=== PATIENT | male | born 1995 | race Caucasian/White ===

== ENCOUNTER 2021-10-20 12:31 | Emergency (ER) | payer SELFPAY ==
[2021-10-20 12:46] VITALS: BP 124/78; PULSE 62; RESP 16; TEMP 36.6; O2SAT 99
--- NOTE | 2021-10-20 12:58 | ED.BACK ---
HPI - Back Pain/Injury General Chief Complaint: Back Pain/Injury Stated Complaint: Middle to low back paiin Source: patient Mode of arrival: ambulatory Limitations: no limitations History of Present Illness HPI Narrative: this 26-year-old gentleman presents with low back pain right pair of vertebral area with negative straight leg raising test tenderness with movement and with some lifting, the patient states that he works for [employer] and has been lifting heavy boxes and about a week ago after lifting his pain started he rates it about a 7/10 states that he has tried ibuprofen with minimal relief with no saddle paresthesias no bowel or bladder dysfunction no fever chills. MD elicited complaint: back pain Onset (ago): week(s) Timing: constant Severity: moderate Pain scale (0-10): 7 Quality: aching and spasming Location: lumbar spine Radiation: none Exacerbating factors: movement Related Data Allergies Allergy/AdvReac Type Severity Reaction Status Date / Time iohexol Allergy Unknown Verified 10/20/21 12:49 [From contrast - CT, X-RAY] shellfish derived Allergy Anaphylaxis Verified 10/20/21 12:49 Review of Systems Review of Systems: All systems reviewed & are unremarkable except as noted in HPI and below PMFSH Past Medical History Medical History Patient denies medical problems Exam Const: General: healthy appearing and no acute distress HENMT: Head: normal to inspection Eyes: Pupils: Equal, round and reactive pupils present EOM: EOMs intact bilaterally Neck: Neck: normal visual inspection, no lymphadenopathy and no meningeal signs Chest: Chest palpation & inspection: normal inspection of the chest Resp: Effort & Inspection: normal respiratory effort Auscultation: clear to auscultation bilaterally Cardio: Rate: regular rate GI: Auscultation: normal bowel sounds : General: Yes bladder normal to palpation Back/Spine/Pelvis: Back: no CVA tenderness Skin: General skin exam: normal color Rashes: no rashes Wounds: no wounds Neuro: General: patient oriented x3, moves all extremities, no meningeal signs and no focal motor deficits Extrem: General: normal to inspection Other: right L4 and 5 paravertebral tenderness with palpation with a negative straight leg raising test Psych: Mental Status: mental status grossly normal Affect: normal affect Course Course Emergency Course: reassessment patient after receiving 60 IM Toradol and 100 IM muscle relaxant patient states that his pain level has improved and will be sending medication to his pharmacy advised establishing with a provider. Vital Signs Vital signs: Vital Signs Temperature 36.6 C 10/20/21 12:46 Pulse Rate 62 10/20/21 12:46 Respiratory Rate 16 10/20/21 12:46 Blood Pressure 124/78 10/20/21 12:46 Pulse Oximetry 99 10/20/21 12:46 Oxygen Delivery Room Air 10/20/21 12:46 Temperature 36.6 C 10/20/21 12:46 Pulse Rate 62 10/20/21 12:46 Respiratory Rate 16 10/20/21 12:46 Blood Pressure 124/78 10/20/21 12:46 Pulse Oximetry 99 10/20/21 12:46 Oxygen Delivery Room Air 10/20/21 12:46 Critical Care Time Critical Care Time Critical Care Time: No Discharge Plan Discharge Clinical Impression: Strain of lumbar region Patient Disposition: Home, Self-Care Condition: Stable Instructions: Antibiotic Form, Acute Low Back Pain (ED) Additional Instructions: Take medicine as prescribed and follow up some primary care provider /establish. Prescriptions: New naproxen 500 mg tablet 500 mg PO BID Qty: 14 0RF cyclobenzaprine 10 mg tablet 10 mg PO TID Qty: 20 0RF Rx Instructions: careful while driving and operating heavy equipment. Follow-up/Referrals: UNKNOWN,DOCTOR [Primary Care Provider] - Time of Disposition: 13:05
[2021-10-20] MEDS: ORPHENADRINE CITRATE 100 MG TABLET.ER PO (13:04)
[2021-10-20] MEDS: KETOROLAC (*BKC) 60 MG/2 ML VIAL IM (13:04)
[2021-10-20 13:18] VITALS: BP 124/78; PULSE 62; RESP 16; TEMP 36.6; O2SAT 99
== END 2021-10-20 13:19 | disposition home or self-care (01) ==
PROVIDERS: Emergency Provider Emergency Medicine
DX: S39.012A Strain of muscle, fascia and tendon of lower back, initial encounter (principal); X50.0XXA Overexertion from strenuous movement or load, initial encounter
CPT/HCPCS: 96372; 99283; A9270; J1885

== ENCOUNTER 2022-09-04 09:35 | Outpatient (CLI) | payer OTHER, SELFPAY ==
--- NOTE | ~2022-09-04 | XR_ITS ---
Thoracic spine: Clinical Indication: Back pain AP and lateral views were performed. No fracture is seen. There is normal alignment of the vertebrae. The intervertebral disc spaces appe ar normal. Paravertebral soft tissues appear normal. Impression: No significant abnormalities noted. Reviewed, dictated and finalized at [facility]. Impression: No significant abnormalities noted.
--- NOTE | ~2022-09-04 | XR_ITS ---
Lumbosacral Spine: AP and lateral views Clinical History: Pain Findings: The normal lordotic curve is maintained. The vertebral bodies and posterior elements are i ntact. The intervertebral disc spaces are preserved. The sacroiliac joints are normally outlined. Impression: No significant abnormality. Reviewed, dictated and finalized at [facility]. Impression: No significant abnormality.
== END 2022-09-04 09:36 | disposition home or self-care (01) ==
LOC: CHSIMG 09:37
PROVIDERS: PCP Nurse Practitioner Family; Visit Provider Nurse Practitioner Family
DX: M54.50 Low back pain, unspecified (principal)
CPT/HCPCS: 72072; 72100

== ENCOUNTER 2023-03-17 07:51 | Outpatient (CLI) | payer OTHER, SELFPAY | END 2023-03-17 07:52 | disposition home or self-care (01) | LOC: CHSIMG 07:52 | PROVIDERS: PCP Nurse Practitioner Family; Visit Provider Nurse Practitioner Family | DX: M54.9 Dorsalgia, unspecified (principal) | CPT/HCPCS: 99199 ==

== ENCOUNTER 2023-03-29 07:49 | Outpatient (CLI) | payer OTHER, SELFPAY ==
--- NOTE | ~2023-03-29 | MR_ITS ---
MRI of the thoracic spine Clinical History: Back pain Technique: Axial T2-weighted and gradient images, and sagittal T1-weighted, T2-weighted, and STIR cailin ges were acquired. Findings: There is no fracture or subluxation of the thoracic spine. Vertebral bodies maintain normal height and alignment. No bone marrow signal abnormality seen. There are mild disc bulges at T8-T9 and T9-T10. No ruby spinal canal stenosis or cord compression. N o epidural mass or collection seen. Paravertebral soft tissues are unremarkable. Impression: Disc bulges at T8-T9 and T9-T10. Reviewed, dictated and finalized at location . [facility] Impression: Disc bulges at T8-T9 and T9-T10.
== END 2023-03-29 07:50 | disposition home or self-care (01) ==
LOC: CHSIMG 07:50
PROVIDERS: PCP Nurse Practitioner Family; Visit Provider Nurse Practitioner Family
DX: G89.29 Other chronic pain (principal); M54.50 Low back pain, unspecified; M54.9 Dorsalgia, unspecified; M51.34 Other intervertebral disc degeneration, thoracic region
CPT/HCPCS: 72146